=== PATIENT | male | born 1940 | race Caucasian/White ===

== ENCOUNTER 2023-06-03 20:58 | Inpatient (IN) | payer MEDICARE, BC ==
[~2023-06-03] VITALS: Ht 170.2 cm; Wt 88.6 kg
[~2023-06-03 20:58] MED LIST: ASPI-1265 PO; CLOP75TA34 PO; FLO0.4C PO; LOP25T PO; LOVA20TA2 PO; NOR5T PO; PHEN-786 PO
[2023-06-03 21:31] LABS: BASOPHILS # (AUTO) 0.1 X10'3 (0-0.2); BASOPHILS % (AUTO) 1.9 % (0-1); EOSINOPHILS # (AUTO) 0.8 X10'3 (0-0.9); EOSINOPHILS % (AUTO) 9.6 % (0-6); HEMATOCRIT 47.7 % (42.0-52.0); HEMOGLOBIN 16.2 g/dl (14.0-17.9); LYMPHOCYTES # (AUTO) 2.7 X10'3 (1.1-4.8); LYMPHOCYTES % (AUTO) 33.5 % (21-51); MEAN CORPUSCULAR HEMOGLOBIN 33.5 PG (27.0-31.0); MEAN CORPUSCULAR HGB CONC 33.9 g/dL (33.0-36.5); MEAN CORPUSCULAR VOLUME 98.9 FL (78-98); MEAN PLATELET VOLUME 9.9 FL (7.4-10.4); MONOCYTES # (AUTO) 0.9 X10'3 (0-0.9); MONOCYTES % (AUTO) 11.1 % (2-12); NEUTROPHILS # (AUTO) 3.5 X10'3 (1.8-7.7); NEUTROPHILS % (AUTO) 43.9 % (42-75); PLATELET COUNT 121 X10'3 (140-440); RED BLOOD COUNT 4.82 X10'6 (4.70-6.10)
[2023-06-03 21:44] LABS: ALANINE AMINOTRANSFERASE 92 U/L (12-78); ALBUMIN 4.1 G/DL (3.4-5.0); ALBUMIN/GLOBULIN RATIO 0.9 (1.1-1.5); ALKALINE PHOSPHATASE 58 IU/L (46-116); ANION GAP 8 (8-16); ASPARTATE AMINO TRANSFERASE 84 U/L (10-37); BILIRUBIN,TOTAL 0.5 MG/DL (0.1-1.0); BLOOD UREA NITROGEN 24 MG/DL (7-18); BUN/CREATININE RATIO 17.9 (10.0-20.0); CALCIUM 9.8 MG/DL (8.5-10.1); CHLORIDE 101 MMOL/L (99-107); CREATININE 1.34 MG/DL (0.60-1.10); GLUCOSE 193 MG/DL (70-104); POTASSIUM 3.7 MMOL/L (3.5-5.1); SODIUM 139 MMOL/L (135-145); TOTAL CARBON DIOXIDE 30.1 MMOL/L (24-32); TOTAL PROTEIN 8.5 G/DL (6.4-8.2); eCRCL 40 ML/MIN; eGFR 51 ML/MIN
[2023-06-03 21:51] LABS: PRO BRAIN NATRIURETIC PEPTIDE 1061 PG/ML (0-450)
[2023-06-03] MEDS ORDERED: furosemide 40mg/4ml inj IV ONE (21:55)
[2023-06-03] MEDS ORDERED: methylPREDNISolone sod succ 125mg/2ml vial IV ONE (21:55)
[2023-06-03] MEDS ORDERED: ipratropium/albuterol 3ml nebule NEB ONE (21:55)
[2023-06-03] MEDS ORDERED: nitroGLYCERIN 0.4mg SUBLingual tab SL STA (22:07)
[2023-06-03 22:58] VITALS: PULSE 93; RESP 16; O2SAT 93
[2023-06-03 23:03] VITALS: PULSE 97; RESP 16; O2SAT 94
[2023-06-03] MEDS ORDERED: potassium Cl 20 mEq SR tablet PO PRN ×2 (23:40)
[2023-06-03] MEDS ORDERED: magnesium Cl slow-release 64mg tablet PO PRN (23:40)
[2023-06-03] MEDS ORDERED: morphine 2 MG/ML inj. syringe IV PRN (23:40)
[2023-06-03] MEDS ORDERED: acetaminophen 325mg tablet PO PRN (23:40)
[2023-06-03] MEDS ORDERED: ondansetron/PF 4mg/2ml inj IV PRN (23:40)
[2023-06-03] MEDS ORDERED: magnesium 2GM in 50ml NS 50 ML IV PRN (23:40)
[2023-06-03] MEDS ORDERED: PERFLUTREN PROTEIN-A MICROSPHR (Optison) 0.22 MG/ML 3ML VIAL IV PRN (23:40)
[2023-06-03] MEDS ORDERED: magnesium 4gm in 100ml NS 100 ML IV PRN (23:40)
[2023-06-03] MEDS ORDERED: potassium Cl 40MEQ/1/2NS 520ml 520 ML IV PRN (23:40)
[2023-06-04] VITALS (12 sets, daily range): BP systolic 94–185; BP diastolic 57–99; PULSE 81–100; RESP 15–26; TEMP 97.5–98.2; O2SAT 0–95
[2023-06-04] MEDS ORDERED: PERFLUTREN PROTEIN-A MICROSPHR (Optison) 0.22 MG/ML 3ML VIAL IV PRN (00:45)
[2023-06-04] MEDS ORDERED: magnesium 2GM in 50ml NS 50 ML IV PRN (00:45)
[2023-06-04] MEDS ORDERED: magnesium Cl slow-release 64mg tablet PO PRN (00:45)
[2023-06-04] MEDS ORDERED: morphine 2 MG/ML inj. syringe IV PRN (00:45)
[2023-06-04] MEDS ORDERED: potassium Cl 20 mEq SR tablet PO PRN ×2 (00:45)
[2023-06-04] MEDS ORDERED: ondansetron/PF 4mg/2ml inj IV PRN (00:45)
[2023-06-04] MEDS ORDERED: acetaminophen 325mg tablet PO PRN (00:45)
[2023-06-04] MEDS ORDERED: magnesium 4gm in 100ml NS 100 ML IV PRN (00:45)
[2023-06-04] MEDS ORDERED: potassium Cl 40MEQ/1/2NS 520ml 520 ML IV PRN (00:45)
[2023-06-04] MEDS ORDERED: furosemide 10 MG/1 ML 10ml inj IV ONE (00:55)
[2023-06-04] MEDS ORDERED: methylPREDNISolone sod succ/PF 40mg inj. IV SCH (00:58)
[2023-06-04 01:23] LABS: BASOPHILS # (AUTO) 0.1 X10'3 (0-0.2); BASOPHILS % (AUTO) 1.4 % (0-1); EOSINOPHILS # (AUTO) 0.3 X10'3 (0-0.9); EOSINOPHILS % (AUTO) 4.8 % (0-6); HEMATOCRIT 44.1 % (42.0-52.0); HEMOGLOBIN 15.1 g/dl (14.0-17.9); LYMPHOCYTES # (AUTO) 0.8 X10'3 (1.1-4.8); LYMPHOCYTES % (AUTO) 14.9 % (21-51); MEAN CORPUSCULAR HEMOGLOBIN 33.5 PG (27.0-31.0); MEAN CORPUSCULAR HGB CONC 34.1 g/dL (33.0-36.5); MEAN CORPUSCULAR VOLUME 98.1 FL (78-98); MEAN PLATELET VOLUME 9.7 FL (7.4-10.4); MONOCYTES # (AUTO) 0.2 X10'3 (0-0.9); MONOCYTES % (AUTO) 4.5 % (2-12); NEUTROPHILS % (AUTO) 74.4 % (42-75); PLATELET COUNT 107 X10'3 (140-440); RED CELL DISTRIBUTION WIDTH 12.5 % (11.5-14.5); WHITE BLOOD COUNT 5.4 X10'3 (4.5-11.0)
[2023-06-04 01:36] LABS: ALBUMIN 3.9 G/DL (3.4-5.0); ANION GAP 6 (8-16); BLOOD UREA NITROGEN 22 MG/DL (7-18); BUN/CREATININE RATIO 16.8 (10.0-20.0); CALCIUM 9.4 MG/DL (8.5-10.1); CHLORIDE 100 MMOL/L (99-107); CREATININE 1.31 MG/DL (0.60-1.10); GLUCOSE 185 MG/DL (70-104); MAGNESIUM 1.9 MG/DL (1.5-2.4); POTASSIUM 3.9 MMOL/L (3.5-5.1); SODIUM 138 MMOL/L (135-145); TOTAL CARBON DIOXIDE 31.8 MMOL/L (24-32); eCRCL 41 ML/MIN; eGFR 53 ML/MIN
[2023-06-04] MEDS: nitroGLYCERIN 0.4mg/hour patch TD SCH ×4 (03:07→16:30)
[2023-06-04] MEDS: hydrALAZINE 20mg/ml inj. IV SCH ×4 (04:07→21:09)
[2023-06-04] MEDS: K and/or MAG REPLACEMENT MC SCH ×2 (08:00→20:00)
[2023-06-04] MEDS ORDERED: K and/or MAG REPLACEMENT MC SCH (08:00)
[2023-06-04] MEDS: CefTRIAXone/D5W-Rocephin 1gm 50 ML IV SCH (08:40)
[2023-06-04] MEDS: methylPREDNISolone sod succ/PF 40mg inj. IV SCH ×2 (08:45→21:03)
[2023-06-04] MEDS: amLODIPine 5mg tablet PO SCH (08:59)
[2023-06-04] MEDS: tamsulosin 0.4mg capsule PO SCH (08:59)
[2023-06-04] MEDS: aspirin 81mg tab.chew PO SCH (08:59)
[2023-06-04] MEDS: heparin, porcine 5000 units/ml vial SQ SCH ×2 (09:00→21:04)
[2023-06-04] MEDS: clopidogrel 75mg tablet PO SCH (09:02)
[2023-06-04] MEDS ORDERED: albuterol 2.5 MG/3 ML nebule NEB PRN (10:00)
[2023-06-04] MEDS ORDERED: ipratropium/albuterol 3ml nebule NEB PRN (10:00)
[2023-06-04 10:25] LABS: APTT 30 SECONDS (22-32); INR 1.1 INR; PROTHROMBIN TIME 11.8 SECONDS (9.0-12.0)
[2023-06-04] MEDS: azithromycin/NS 500mg/250ml 250 ML IV SCH (12:53)
[2023-06-04] MEDS: furosemide 20 MG/2 ML vial IV SCH (12:53)
[2023-06-04] MEDS ORDERED: atorvastatin 10mg tablet PO SCH (21:00)
[2023-06-04] MEDS: metoprolol tartrate 25mg tablet PO SCH (21:02)
[2023-06-05 02:00] VITALS: BP 137/81; PULSE 89; RESP 15; TEMP 98.2; O2SAT 95
[2023-06-05] MEDS: hydrALAZINE 20mg/ml inj. IV SCH ×2 (02:15→08:52)
[2023-06-05 06:00] VITALS: BP 131/87; PULSE 77; RESP 15; TEMP 97.7; O2SAT 97
[2023-06-05 07:45] LABS: BASOPHILS % (AUTO) 0.1 % (0-1); EOSINOPHILS % (AUTO) 0 % (0-6); HEMATOCRIT 43.9 % (42.0-52.0); HEMOGLOBIN 14.6 g/dl (14.0-17.9); LYMPHOCYTES # (AUTO) 1.1 X10'3 (1.1-4.8); LYMPHOCYTES % (AUTO) 7.1 % (21-51); MEAN CORPUSCULAR HEMOGLOBIN 32.9 PG (27.0-31.0); MEAN CORPUSCULAR HGB CONC 33.3 g/dL (33.0-36.5); MEAN CORPUSCULAR VOLUME 98.7 FL (78-98); MEAN PLATELET VOLUME 10.5 FL (7.4-10.4); MONOCYTES # (AUTO) 0.7 X10'3 (0-0.9); MONOCYTES % (AUTO) 4.6 % (2-12); NEUTROPHILS # (AUTO) 13.3 X10'3 (1.8-7.7); NEUTROPHILS % (AUTO) 88.2 % (42-75); PLATELET COUNT 129 X10'3 (140-440); RED BLOOD COUNT 4.45 X10'6 (4.70-6.10); RED CELL DISTRIBUTION WIDTH 12.7 % (11.5-14.5); WHITE BLOOD COUNT 15.1 X10'3 (4.5-11.0)
[2023-06-05 08:00] VITALS: RESP 15; O2SAT 97
[2023-06-05] MEDS: K and/or MAG REPLACEMENT MC SCH (08:00)
[2023-06-05 08:07] LABS: ALANINE AMINOTRANSFERASE 64 U/L (12-78); ALBUMIN 3.7 G/DL (3.4-5.0); ALBUMIN/GLOBULIN RATIO 0.9 (1.1-1.5); ALKALINE PHOSPHATASE 49 IU/L (46-116); ANION GAP 10 (8-16); ASPARTATE AMINO TRANSFERASE 48 U/L (10-37); BILIRUBIN,TOTAL 0.5 MG/DL (0.1-1.0); BLOOD UREA NITROGEN 41 MG/DL (7-18); BUN/CREATININE RATIO 22.9 (10.0-20.0); CALCIUM 9.6 MG/DL (8.5-10.1); CHLORIDE 94 MMOL/L (99-107); CHOL/HDL RATIO 8.7 (0.00-4.99); CHOLESTEROL 374 MG/DL (0-200); CREATININE 1.79 MG/DL (0.60-1.10); GLUCOSE 209 MG/DL (70-104); HDL CHOLESTEROL 43 MG/DL (35-60); POTASSIUM 4.3 MMOL/L (3.5-5.1); SODIUM 133 MMOL/L (135-145); TOTAL CARBON DIOXIDE 29.2 MMOL/L (24-32); TOTAL PROTEIN 7.6 G/DL (6.4-8.2); TRIGLYCERIDES 186 MG/DL (20-135); eCRCL 30 ML/MIN; eGFR 37 ML/MIN
[2023-06-05 08:21] LABS: LDL CHOLESTEROL 251 MG/DL (50-100)
[2023-06-05] MEDS: CefTRIAXone/D5W-Rocephin 1gm 50 ML IV SCH (08:46)
[2023-06-05] MEDS: methylPREDNISolone sod succ/PF 40mg inj. IV SCH (08:50)
[2023-06-05] MEDS: furosemide 20 MG/2 ML vial IV SCH (08:52)
[2023-06-05] MEDS: aspirin 81mg tab.chew PO SCH (09:23)
[2023-06-05] MEDS: tamsulosin 0.4mg capsule PO SCH (09:23)
[2023-06-05] MEDS: clopidogrel 75mg tablet PO SCH (09:23)
[2023-06-05] MEDS: metoprolol tartrate 25mg tablet PO SCH (09:24)
[2023-06-05] MEDS: amLODIPine 5mg tablet PO SCH (09:24)
[2023-06-05] MEDS: heparin, porcine 5000 units/ml vial SQ SCH (09:25)
[2023-06-05] MEDS: azithromycin/NS 500mg/250ml 250 ML IV SCH (09:29)
[2023-06-05 11:00] VITALS: BP 126/58; PULSE 70; RESP 22; TEMP 97.9; O2SAT 2
[2023-06-05] MEDS ORDERED: FURO-150 PO (11:33)
[2023-06-05] MEDS ORDERED: PRED10TA23 PO (11:33)
== END 2023-06-05 15:15 | disposition home or self-care (01) | DRG 291 ==
LOC: ER 20:58 → ED HOLD 23:42 → EDBEDREQ 06-04 03:17 → PCU 3S 06-04 03:43
PROVIDERS: ADMIT Internal Medicine; ATTEND Internal Medicine
DX: I13.0 Hypertensive heart and chronic kidney disease with heart failure and stage 1 through stage 4 chronic kidney disease, or unspecified chronic kidney disease (principal); I50.23 Acute on chronic systolic (congestive) heart failure; J96.01 Acute respiratory failure with hypoxia; N17.0 Acute kidney failure with tubular necrosis; I16.1 Hypertensive emergency; J44.1 Chronic obstructive pulmonary disease with (acute) exacerbation; Z66 Do not resuscitate; E78.5 Hyperlipidemia, unspecified; R73.9 Hyperglycemia, unspecified; N18.30 Chronic kidney disease, stage 3 unspecified; N40.0 Benign prostatic hyperplasia without lower urinary tract symptoms; T38.0X5A Adverse effect of glucocorticoids and synthetic analogues, initial encounter; Y92.89 Other specified places as the place of occurrence of the external cause; Z95.1 Presence of aortocoronary bypass graft; Z87.891 Personal history of nicotine dependence; Z79.899 Other long term (current) drug therapy; Z79.82 Long term (current) use of aspirin; Z79.02 Long term (current) use of antithrombotics/antiplatelets
CPT/HCPCS: 36415; 71045; 80048; 80053; 80061; 83735; 83880; 84484; 85025; 85610; 85730; 87081; 87502; 87503; 93005; 93306; 94640; 94760; 99285; A4615; G0378; J0360; J0456; J0696; J1644; J1940; J2270; J2920; J2930; J7040

== ENCOUNTER 2023-08-14 10:14 | Emergency (ER) | payer MEDICARE, BC ==
[~2023-08-14] VITALS: Ht 172.7 cm; Wt 90.9 kg
[~2023-08-14 10:14] MED LIST changes: +ALBU8HFA INH; +AMLO-708 PO; -CLOP75TA34 PO; +FURO40TA4 PO; +IPRA4AER IH; -LOP25T PO; +METO50TA17 PO; -NOR5T PO; -PHEN-786 PO; +PRED20TA PO
[2023-08-14 10:21] VITALS: TEMP 97.6
[2023-08-14] MEDS: normal saline 1000ML IV soln IVB ONE (11:00)
[2023-08-14 12:33] LABS: BILIRUBIN,URINE NEGATIVE (Neg); CLARITY,URINE CLEAR (Clear); COLOR,URINE YELLOW (Yellow); GLUCOSE, URINE NEGATIVE (Neg); KETONES,URINE NEGATIVE (Neg); LEUKOCYTE ESTERASE ,URINE NEGATIVE (Neg); NITRITES, URINE NEGATIVE (Neg); OCCULT BLOOD,URINE NEGATIVE (Neg); PROTEIN,URINE NEGATIVE (Neg); UROBILINOGEN,URINE 0.2 E.U/dL (0.2-1.0)
[2023-08-14 12:36] LABS: UA COLLECTION TYPE URINAL
[2023-08-14 12:47] VITALS: BP 97/58; PULSE 73; RESP 17; O2SAT 93
[2023-08-14 13:12] LABS: MONOCYTES # (AUTO) 0.5 X10'3 (0-0.9)
[2023-08-14 13:14] LABS: BASOPHILS % (AUTO) 0.2 % (0-1); EOSINOPHILS # (AUTO) 0.1 X10'3 (0-0.9); EOSINOPHILS % (AUTO) 0.5 % (0-6); HEMATOCRIT 48.5 % (42.0-52.0); HEMOGLOBIN 16.5 g/dl (14.0-17.9); LYMPHOCYTES % (AUTO) 9.6 % (21-51); MEAN CORPUSCULAR HEMOGLOBIN 33.2 PG (27.0-31.0); MEAN CORPUSCULAR VOLUME 97.5 FL (78-98); MEAN PLATELET VOLUME 10.5 FL (7.4-10.4); MONOCYTES % (AUTO) 4.7 % (2-12); NEUTROPHILS # (AUTO) 9.1 X10'3 (1.8-7.7); PLATELET COUNT 121 X10'3 (140-440); RED BLOOD COUNT 4.98 X10'6 (4.70-6.10); RED CELL DISTRIBUTION WIDTH 13.1 % (11.5-14.5); WHITE BLOOD COUNT 10.8 X10'3 (4.5-11.0)
[2023-08-14 14:09] LABS: URINE AMPHETAMINE SCREEN NEGATIVE (Neg); URINE BARBITUATE SCREEN NEGATIVE (Neg); URINE BENZODIAZEPINES SCREEN NEGATIVE (Neg); URINE CANNABINOID SCREEN NEGATIVE (Neg); URINE COCAINE SCREEN NEGATIVE (Neg); URINE METHADONE SCREEN NEGATIVE (Neg); URINE OPIATE SCREEN NEGATIVE (Neg); URINE PHENCYCLIDINE SCREEN NEGATIVE (Neg)
== END 2023-08-14 16:27 | disposition left against medical advice (07) ==
LOC: ER 10:15
DX: R55 Syncope and collapse (principal); I11.0 Hypertensive heart disease with heart failure; I50.9 Heart failure, unspecified; Z79.899 Other long term (current) drug therapy
CPT/HCPCS: 71045; 80305; 81003; 85025; 93005; 99285; J7030